=== PATIENT | male | born 1955 | race Caucasian/White ===

== ENCOUNTER 2018-05-10 10:54 | Emergency (ER) | payer OTHER ==
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
[2018-05-10 11:34] LABS: ABS Basophils 0.1 10^3/ul (0-0.2); ABS Eosinophils 0 10^3/ul (0-0.6); ABS Lymphocytes 0.9 10^3/ul (1.0-4.8); ABS Monocytes 0.6 10^3/ul (0-0.8); ABS Neutrophils 5.5 10^3/ul (1.5-7.7); ABS Nucleated RBC 0 10^3/ul; Eosinophil % 0.1 % (0-6); Hematocrit 34 % (42-52); Hemoglobin 11.6 g/dl (14.0-18.0); Lymphocyte % 13.1 % (25-47); Mean Corpuscular HGB Conc 34 g/dl (31-36); Mean Corpuscular Hemoglobin 31 pg (27-31); Mean Corpuscular Volume 91 fL (80-94); Mean Platelet Volume 7.9 um3 (7.4-10.4); Nucleated Red Blood Cells % 0.1; Platelet Count 134 10^3/ul (150-450); Red Blood Count 3.69 10^6/ul (4.00-5.40); Red Cell Distribution Width 15 % (10.5-15); White Blood Count 7.1 10^3/ul (3.5-10.8)
[2018-05-10] MEDS ORDERED: Iodixanol* (CONTRAST) 320 MG/ML 100 ML SDV IV ONE (11:37)
[2018-05-10 11:53] LABS: EGFR Non-African American 98.4 (>60)
[2018-05-10 11:54] LABS: INR 1.04 (0.77-1.02)
--- OUTSIDE RECORDS SUMMARY | 2018-05-10 11:54 | XMS REPORT ---
:1955 External Reference #:[id number] Author Organization [facility] Address [address] [place] [address] Phone [phone] Care Team Providers Name Role Phone HCP given Primary Care Physician Unavailable Payers Type Date Identification Numbers Payment Provider Subscriber Commercial Effective: Policy Number: [id number] Melina / LUIS FERNANDO Ever Wagner 2014 Healthcare PayID: [id number] [address] [place] [address] Problems Date Description Provider Status Onset: 06/18/2012 Essential hypertension Active Onset: 08/04/2014 Anticoagulant David Albarado D.O. Active Onset: 08/04/2014 Benign essential hypertension David Albarado D.O. Active Onset: 08/04/2014 Thromboembolic disorder David Albarado D.O. Active Onset: 04/15/2017 Long-term current use of anticoagulant David Albarado D.O. Active Onset: 04/15/2017 Disorder of lipid metabolism David Albarado D.O. Active Onset: 04/15/2017 Vitamin D deficiency David Albarado D.O. 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 Cigarette Use Denies Cigarette Use ETOH Use Occassional Alcohol Recreational Drug Use Denies Drug Use Smoking Patient has never smoked Daily Caffeine Consumes on average 3 cups of coffee per day Daily Caffeine Consumes on average 1 soda per day Enjoy Exercising Enjoys exercising some Sun Exposure Does not use sunscreen Seat Belt/Car Seat always uses seat belt Guns in Home Yes, Locked Up Smoke Alarms Yes smoke alarm Currently Active Patient is currently sexually active Allergies, Adverse Reactions, Alerts Date Description Reaction Status Severity Comments 05/11/2014 Augmentin Urticaria active Mild to Moderate 05/23/2012 NKDA inactive Medications Medication Date Status Form Strength Qnty SIG Indications Ordering Provider Viagra 10/15/ Active Tablets 50mg 6tabs take 1 tablet N52.9 [facility]2016 by mouth David, daily as D.O. needed for erectile dysfunction Vitamin D3 04/15/ Active Capsules 5000Unit 90caps 1 by mouth E55.9 [facility], Maximum 2016 every day or David, Strength 7 tablets D.O. once a week Xarelto 10/12/ Active Tablets 20mg 90tabs take one Z79.01 [facility], 2014 tablet by David, mouth once D.O. daily Lisinopril-H 10/18/ Active Tablets 10-12.5mg 90tabs take one I10 [place], ydrochloroth 2013 tablet by David, iachentee mouth in the D.O. morning for high blood pressure I10 Metoprolol 08/22/2012 Active Tablets ER 50mg 90tabs take one I10 [place], Succinate ER 24HR tablet by David, mouth once D.O. daily Viagra 04/15/2017 - Hx Tablets 50mg 6tabs take 1 tablet N52.9 [facility], 10/14/2017 by mouth David, daily as D.O. needed for erectile dysfunction Vitamin D 04/14/2017 - Hx Tablets 1000Uni 1 by mouth Unknown 04/22/2018 t every day Xarelto 10/12/2015 - Hx Tablets 15mg 42tabs 1 tab twice a Z79.0 [facility] , 11/02/2015 day with food 1 David, D.O. I82.91 Prednisone 05/11/2014 - Hx Tablets 20mg 10tabs 2 by mouth 995.27 [facility], 08/02/2014 every day David, D.O. Amoxicillin/C 05/03/2014 - Hx Tablets 875-125 14tabs 1 tab by 522.4 [place] lavulanate 05/11/2014 mg mouth twice a Woo, Potassium day x 7 M.DClaudia Tramadol HCL 05/03/2014 - Hx Tablets 50mg 20tabs 1 q6 hours 522.4 [place], 08/02/2014 Nancy Berkowitz Lovenox 05/11/2013 - Hx Solution 100mg/m 10needle Inject 0.9 ml Ronn, 05/22/2013 l bid, continue pat Berkowitz M.DClaudia instructed to d/c Coumadin 05/11/2013 - Hx Tablets 5mg 90tabs take one Z79.01 [place], 10/12/2015 tablet by Dilma Hernandez mouth at bedtime or as directed I82.91 Coumadin 05/11/2013 - Hx Tablets 1mg 200tabs take 1-4 [place], 10/12/2015 tablets by Jo Ann HernandezOClaudia mouth every evening as directed Metoprolol 06/18/2012 - Hx Tablets 25mg 30tabs 1 tab [place], Tartrate 06/18/2012 shortly Nancy Berkowitz before bed to start Lisinopril/Hydr 06/18/2012 - Hx Tablets 10-12.5m 90tabs Take One 401. [place], ochlorothiazide 10/18/2014 g Tablet By 9 Nancy Berkowitz Mouth Every Morning For High Blood Pressure 401.1 Compression 06/05/2012 - Hx Wear daily I82.4Y9 Ronn, Stocking 20 # 04/14/2017 Nancy Berkowitz Pressure Cephalexin 06/05/2012 - Hx Capsules 500mg 14cap 1 tablet bid 782.3 [place], 06/13/2012 s x 7 days Nancy Berkowitz Vitamin C 05/20/2012 - Hx Chewtabs [place], 10/14/2017 Nancy Berkowitz Fish Oil 05/20/2012 - Hx Capsules 90cap 1 po qd [place], 02/01/2015 s Nancy Berkowitz Coumadin 05/15/2012 - Hx Tablets 1mg 120ta qpm as [place], 02/27/2013 bs directed Nancy Berkowitz Coumadin 05/15/2012 - Hx Tablets 6mg 60tab take 1 qd as [place], 02/27/2013 chris Berkowitz M.D. Immunizations CPT Code Status Date Vaccine Lot # [id number] Given 04/22/2018 Prevnar 13 [id number] Given 10/15/2017 Zostavax [id number] Given 10/15/2017 Influenza Virus Vaccine, Quadrivalent, Split, Preservative Free [id number] Given 07/29/2013 Flu, Split Virus 3Yrs [id number] 69204 Given 08/22/2012 Flu, Split Virus 3Yrs [id number] Given 03/12/2012 Tetanus diptheria Immunization Vital Signs Date Vital Result Comment 04/22/2018 BP Systolic 114 mmHg BP Diastolic 78 mmHg Height 65.25 inches 5'5.25" Weight 205.00 lb BMI (Body Mass Index) 33.8 kg/m2 10/15/2017 BP Systolic 122 mmHg BP Diastolic 82 mmHg Weight 221.00 lb 04/15/2017 BP Systolic 120 mmHg BP Diastolic 70 mmHg Height 65 inches 5'5" Weight 213.00 lb BMI (Body Mass Index) 35.4 kg/m2 10/12/2016 BP Systolic 120 mmHg BP Diastolic 88 mmHg Height 65.75 inches 5'5.75" with boots Weight 228.00 lb with steel toe boots BMI (Body Mass Index) 37.1 kg/m2 10/12/2015 BP Systolic 116 mmHg BP Diastolic 76 mmHg Heart Rate 84 /min 02/02/2015 BP Systolic 110 mmHg BP Diastolic 84 mmHg Height 66 inches 5'6" shoes on Weight 207.00 lb shoes on BMI (Body Mass Index) 33.4 kg/m2 08/04/2014 BP Systolic 100 mmHg BP Diastolic 76 mmHg Height 65.5 inches 5'5.50" Weight 225.00 lb BMI (Body Mass Index) 36.9 kg/m2 05/11/2014 Body Temperature 98.6 F 05/03/2014 BP Systolic 137 mmHg BP Diastolic 69 mmHg Heart Rate 82 /min Weight 224.00 lb 02/01/2014 BP Systolic 133 mmHg BP Diastolic 70 mmHg Heart Rate 86 /min Weight 217.00 lb BMI (Body Mass Index) 36.1 kg/m2 11/04/2013 BP Systolic 115 mmHg BP Diastolic 70 mmHg Heart Rate 50 /min 60 Weight 207.00 lb boots on 07/29/2013 BP Systolic 129 mmHg BP Diastolic 80 mmHg BP Systolic Recheck 126 mmHg BP Diastolic Recheck 77 mmHg Heart Rate 68 /min 63 Height 65.5 inches 5'5.50" Weight 208.00 lb BMI (Body Mass Index) 34.1 kg/m2 05/22/2013 BP Systolic 118 mmHg BP Diastolic 78 mmHg Weight 203.00 lb 05/18/2013 BP Systolic 112 mmHg BP Diastolic 81 mmHg Heart Rate 73 /min Body Temperature 99.0 F Weight 200.00 lb 05/14/2013 BP Systolic 121 mmHg BP Diastolic 90 mmHg Heart Rate 85 /min O2 % BldC Oximetry 97 % 05/11/2013 BP Systolic 110 mmHg BP Diastolic 77 mmHg Heart Rate 82 /min Weight 204.00 lb 92 kilos 04/29/2013 BP Systolic 98 mmHg BP Diastolic 70 mmHg Weight 206.00 lb 01/28/2013 BP Systolic 119 mmHg BP Diastolic 81 mmHg Heart Rate 65 /min Height 65.50 inches 5'5.50" Weight 219.00 lb BMI (Body Mass Index) 35.9 kg/m2 11/24/2012 BP Systolic 121 mmHg lg cuff BP Diastolic 47 mmHg lg cuff Heart Rate 65 /min Weight 222.00 lb 08/28/2012 BP Systolic 112 mmHg BP Diastolic 83 mmHg Heart Rate 54 /min 08/22/2012 BP Systolic 132 mmHg BP Diastolic 102 mmHg BP Systolic Recheck 136 mmHg BP Diastolic Recheck 104 mmHg Heart Rate 74 /min Height 65.50 inches 5'5.50" Weight 215.00 lb BMI (Body Mass Index) 35.2 kg/m2 07/04/2012 BP Systolic 132 mmHg BP Diastolic 92 mmHg BP Systolic Recheck 122 mmHg BP Diastolic Recheck 91 mmHg Heart Rate 73 /min 71 Weight 216.00 lb 06/18/2012 BP Systolic 169 mmHg BP Diastolic 107 mmHg BP Systolic Recheck 163 mmHg BP Diastolic Recheck 95 mmHg Heart Rate 64 /min Weight 216.00 lb 06/05/2012 BP Systolic 155 mmHg BP Diastolic 96 mmHg BP Systolic Recheck 153 mmHg BP Diastolic Recheck 93 mmHg Heart Rate 76 /min 63 05/23/2012 BP Systolic 143 mmHg BP Diastolic 104 mmHg BP Systolic Recheck 146 mmHg Medium cuff both times BP Diastolic Recheck 105 mmHg Medium cuff both times Heart Rate 75 /min 69 Height 65 inches 5'5" Weight 217.00 lb BMI (Body Mass Index) 36.1 kg/m2 Last Menstrual Period 0 Results Test Date Test Result H/L Range Note Laboratory test finding 04/23/2017 TSH (Thyroid Stim 1.62 mcIU/mL 0.34- 5.60 Horm) Vitamin D Total 25(Oh) 21.2 ng/mL Low 30-50 Lipid Profile (Trig/Chol/HDL) 04/23/2017 Triglycerides 217 mg/dL 1 Cholesterol 153 mg/dL 2 HDL Cholesterol 28.4 mg/dL 3 LDL Cholesterol 81 mg/dL 4 CBC Auto Diff 04/23/2017 White Blood Count 5.3 10^3/uL 3.5-10.8 Red Blood Count 4.59 10^6/uL 4.0-5.4 Hemoglobin 14.2 g/dL 14.0-18.0 Hematocrit 42 % 42-52 Mean Corpuscular Volume 91 fL 80-94 Mean Corpuscular Hemoglobin 31 pg 27-31 Mean Corpuscular HGB Conc 34 g/dL 31-36 Red Cell Distribution Width 14 % 10.5-15 Platelet Count 145 10^3/uL Low 150-450 Mean Platelet Volume 9 um3 7.4-10.4 Abs Neutrophils 3.0 10^3/uL 1.5-7.7 Abs Lymphocytes 1.6 10^3/uL 1.0-4.8 Abs Monocytes 0.6 10^3/uL 0-0.8 Abs Eosinophils 0 10^3/uL 0-0.6 Abs Basophils 0.1 10^3/uL 0-0.2 Abs Nucleated RBC 0 10^3/uL Granulocyte % 56.9 % 38-83 Lymphocyte % 30.7 % 25-47 Monocyte % 11.0 % High 1-9 Eosinophil % 0.3 % 0-6 Basophil % 1.1 % 0-2 Nucleated Red Blood Cells % 0 Comp Metabolic Panel 04/23/2017 Sodium 136 mmol/L 133-145 Potassium 3.9 mmol/L 3.5-5.0 Chloride 104 mmol/L 101-111 Co2 Carbon Dioxide 24 mmol/L 22-32 Anion Gap 8 mmol/L 2-11 Glucose 110 mg/dL High 70-100 Blood Urea Nitrogen 22 mg/dL 6-24 Creatinine 1.10 mg/dL 0.67-1.17 BUN/Creatinine Ratio 20.0 8-20 Calcium 9.5 mg/dL 8.6-10.3 Total Protein 7.4 g/dL 6.4-8.9 Albumin 4.6 g/dL 3.2-5.2 Globulin 2.8 g/dL 2-4 Albumin/Globulin Ratio 1.6 1-3 Total Bilirubin 1.70 mg/dL High 0.2-1.0 Alkaline Phosphatase 41 U/L 34-104 Alt 19 U/L 7-52 Ast 17 U/L 13-39 Egfr Non- 67.4 >60 Egfr 86.7 >60 5 Basic Metabolic Panel 01/03/2017 Sodium 135 mmol/L 133-145 Potassium 3.8 mmol/L 3.5-5.0 Chloride 101 mmol/L 101-111 Co2 Carbon Dioxide 25 mmol/L 22-32 Anion Gap 9 mmol/L 2-11 Glucose 104 mg/dL High 70-100 Blood Urea Nitrogen 24 mg/dL 6-24 Creatinine 1.17 mg/dL 0.67-1.17 BUN/Creatinine Ratio 20.5 High 8-20 Calcium 10.0 mg/dL 8.6-10.3 Egfr Non- 63.0 >60 Egfr 81.0 >60 6 HIV 1/2 AB Evaluation 01/03/2017 HIV 1 2 Antibody Nonreactive Nonreactive 7 Laboratory test finding 01/03/2017 Hepatitis C Antibody Nonreactive Nonreactive Vitamin D Total 25(Oh) 11.7 ng/mL Low 30-50 Basic Metabolic Panel 10/12/2015 Sodium 135 mmol/L 133-145 Chloride 101 mmol/L 101-111 Co2 Carbon Dioxide 24 mmol/L 22-32 Glucose 105 mg/dL High 70-100 Blood Urea Nitrogen 14 mg/dL 6-24 Creatinine 1.15 mg/dL 0.67-1.17 BUN/Creatinine Ratio 12.2 8-20 Calcium 9.8 mg/dL 8.6-10.3 8 Egfr Non- 64.4 >60 Egfr 82.9 >60 9 Potassium 4.1 mmol/L 3.5-5.0 Anion Gap 10 mmol/L 2-11 Inr/Protime 10/12/2015 Inr 2.51 High 0.89-1.11 Inr/Protime 07/18/2015 Inr 2.38 High 0.78-1.07 Inr/Protime 04/12/2015 Inr 2.46 High 0.78-1.07 Inr/Protime 03/09/2015 Inr 1.96 High 0.78-1.07 Inr/Protime 02/02/2015 Inr 2.11 High 0.78-1.07 Inr/Protime 12/30/2014 Inr 2.33 High 0.78-1.07 Inr/Protime 12/06/2014 Inr 4.86 High 0.78-1.07 10 Inr/Protime 10/29/2014 Inr 2.86 High 0.85-1.06 Inr/Protime 09/27/2014 Inr 2.62 High 0.85-1.06 Inr/Protime 09/15/2014 Inr 2.02 High 0.85-1.06 Inr/Protime 08/04/2014 Inr 2.46 High 0.85-1.06 Inr/Protime 07/14/2014 Inr 1.79 High 0.85-1.06 Inr/Protime 06/11/2014 Inr 3.15 High 0.85-1.06 Inr/Protime 06/04/2014 Inr 1.90 High 0.85-1.06 Inr/Protime 05/03/2014 Inr 2.49 High 0.85-1.06 Inr/Protime 04/26/2014 Inr 3.33 High 0.85-1.06 Laboratory test finding 04/07/2014 Inr 1.47 High 0.85-1.06 Inr/Protime 03/26/2014 Inr 1.54 High 0.85-1.06 Inr/Protime 02/01/2014 Inr 2.24 High 0.85-1.06 Laboratory test finding 12/08/2013 Inr 1.98 High 0.85-1.06 Inr/Protime 11/17/2013 Inr 1.99 High 0.85-1.06 Laboratory test finding 11/17/2013 Insulin Level 33.1 mcIU/mL 2.6 - 24.9 11 Lipid Profile 11/17/2013 Triglycerides 415 mg/dL High 40-200 (Trig/Chol/HDL) Cholesterol 226 mg/dL High Less than 200 HDL Cholesterol 35 mg/dL Low 40-60 12 Cholesterol/HDL Ratio 6.5 Average High 1-4.44 LDL Cholesterol (SEE NOTE) Less Than 100 13 Inr/Protime 10/26/2013 Inr 2.80 High 0.85-1.06 14 Inr/Protime 10/20/2013 Inr 2.39 High 0.85-1.06 15 Inr/Protime 10/16/2013 Inr 4.99 High 0.85-1.06 16 Inr/Protime 10/12/2013 Inr 4.79 High 0.85-1.06 17 Inr/Protime 09/30/2013 Inr 2.33 High 0.85-1.06 18 Protime 09/26/2013 Protime 15.9 seconds High 12.1-14.9 Inr 1.3 High 0.9-1.1 19 CBC 09/26/2013 White Blood Count 7.3 K/uL 3.4-10.5 Red Blood Count 4.00 M/uL Low 4.20-5.80 Hemoglobin 12.4 gm/dL Low 12.8-17.0 Hematocrit 35.9 % Low 38.0-48.0 Mean Cell Volume 89.8 fl 80.0-96.0 Mean Corpuscular HGB 31.0 pg 27.0-33.0 Mean Corpuscular HGB Conc 34.5 g/dL 31.7-36.0 Platelet Count 218 K/uL 150-400 Red Cell Distri Width %CV 13.9 % 11.6-15.8 Mean Platelet Volume 9.5 fL 6.6-10.6 Comprehensive Metabolic Panel 09/24/2013 Glucose 94 mg/dL 76-115 20 BUN 13 mg/dL 5-23 20 Creatinine 0.9 mg/dL 0.5-1.4 20 Glom Filtration Rate, Estimate >60 mL/min >60 20 If >60 mL/min >60 20, 21 BUN/Creat 14.4 ratio 20 Sodium 136 mmol/L 136-145 20 Potassium 3.7 mmol/L 3.5-5.1 20 Chloride 104 mmol/L 98-107 20 Carbon Dioxide 25 mEq/L 18-29 20 Anion Gap 11 mEq/L 8-16 20 Calcium 8.6 mg/dL 8.5-10.1 20 Total Protein 7.0 g/dL 6.3-8.0 20 Albumin 3.2 g/dL Low 3.5-5.0 20 Globulin 3.8 g/dL 1.9-4.3 20 Alb/Glob 0.8 ratio 20 Bilirubin,Total 2.4 mg/dL High 0.2-1.2 20 Sgot/Ast 26 U/L 16-40 20 SGPT/Alt 33 U/L 30-65 20 Alkaline Phosphatase 85 U/L 50-136 20 Laboratory test finding 09/24/2013 Bilirubin,Direct 0.4 mg/dL 0.1-0.4 20 CBS W/Automated Diff 09/24/2013 White Blood Count 8.2 K/uL 3.4-10.5 20 Red Blood Count 4.28 M/uL 4.20-5.80 20 Hemoglobin 13.3 gm/dL 12.8-17.0 20 Hematocrit 37.9 % Low 38.0-48.0 20 Mean Cell Volume 88.6 fl 80.0-96.0 20 Mean Corpuscular HGB 31.1 pg 27.0-33.0 20 Mean Corpuscular HGB Conc 35.1 g/dL 31.7-36.0 20 Platelet Count 217 K/uL 150-400 20 Red Cell Distri Width SD 43.7 fl 36-51 20 Red Cell Distri Width %CV 13.8 % 11.6-15.8 20 Mean Platelet Volume 9.6 fL 6.6-10.6 20 Neut# 6.43 K/uL 1.8-7.0 20 Lymph # 0.93 K/uL Low 1.2-4.0 20 [place] # 0.76 K/uL High 0.0-0.6 20 Eos # 0.03 K/uL 0.0-0.5 20 Baso # 0.02 K/uL Low 0.1-0.2 20 Protime 09/24/2013 Protime 14.2 seconds 12.1-14.9 20 Inr 1.1 0.9-1.1 20, 22 Differential-WBC Confirm 09/24/2013 Total Cells Counted 100 #CELLS 20 Myelocyte% 2 % High -0 20 Band% 1 % 0-8 20 Neutrophils% 76 % High 33-73 20 Lymph% 12 % Low 17-56 20 Atypical Lymph% 4 % 0-7 20 Monocyte% 4 % 0-10 20 Basophil% 1 % 0-2 20 Platelet Estimate NORMAL 20 RBC Morphology NORMAL 20 Comprehensive Metabolic Panel 09/21/2013 Glucose 135 mg/dL High 76-115 BUN 11 mg/dL 5-23 Creatinine 1.0 mg/dL 0.5-1.4 Glom Filtration Rate, Estimate >60 mL/min >60 If >60 mL/min >60 23 BUN/Creat 11.0 ratio Sodium 138 mmol/L 136-145 Potassium 3.8 mmol/L 3.5-5.1 Chloride 104 mmol/L 98-107 Carbon Dioxide 24 mEq/L 18-29 Anion Gap 14 mEq/L 8-16 Calcium 8.5 mg/dL 8.5-10.1 Total Protein 6.2 g/dL Low 6.3-8.0 Albumin 3.1 g/dL Low 3.5-5.0 Globulin 3.1 g/dL 1.9-4.3 Alb/Glob 1.0 ratio Bilirubin,Total 4.2 mg/dL High 0.2-1.2 Sgot/Ast 19 U/L 16-40 SGPT/Alt 33 U/L 30-65 Alkaline Phosphatase 65 U/L 50-136 Laboratory test finding 09/21/2013 Bilirubin,Direct 0.3 mg/dL 0.1-0.4 Protime 09/21/2013 Protime 16.7 seconds High 12.1-14.9 Inr 1.4 High 0.9-1.1 24 CBS W/Automated Diff 09/21/2013 White Blood Count 21.3 K/uL High 3.4-10.5 Red Blood Count 4.10 M/uL Low 4.20-5.80 Hemoglobin 13.0 gm/dL 12.8-17.0 Hematocrit 36.8 % Low 38.0-48.0 Mean Cell Volume 89.8 fl 80.0-96.0 Mean Corpuscular HGB 31.7 pg 27.0-33.0 Mean Corpuscular HGB Conc 35.3 g/dL 31.7-36.0 Platelet Count 183 K/uL 150-400 Red Cell Distri Width SD 48.2 fl 36-51 Red Cell Distri Width %CV 14.9 % 11.6-15.8 Mean Platelet Volume 10.6 fL 6.6-10.6 Neut# 18.87 K/uL High 1.8-7.0 Lymph # 0.89 K/uL Low 1.2-4.0 [place] # 1.57 K/uL High 0.0-0.6 Eos # 0.00 K/uL 0.0-0.5 Baso # 0.01 K/uL Low 0.1-0.2 Differential-WBC Confirm 09/21/2013 Total Cells Counted 100 #CELLS Band% 9 % High 0-8 Neutrophils% 81 % High 33-73 Lymph% 5 % Low 17-56 Monocyte% 5 % 0-10 Platelet Estimate NORMAL RBC Morphology NORMAL Protime 09/20/2013 Protime 27.7 seconds High 12.1-14.9 Inr 2.6 High 0.9-1.1 25 CBC W/Automated Diff 09/20/2013 White Blood Count 18.2 K/uL High 3.4-10.5 Red Blood Count 5.27 M/uL 4.20-5.80 Hemoglobin 16.4 gm/dL 12.8-17.0 Hematocrit 45.7 % 38.0-48.0 Mean Cell Volume 86.7 fl 80.0-96.0 Mean Corpuscular HGB 31.1 pg 27.0-33.0 Mean Corpuscular HGB Conc 35.9 g/dL 31.7-36.0 Platelet Count 214 K/uL 150-400 Red Cell Distri Width SD 47.0 fl 36-51 Red Cell Distri Width %CV 14.8 % 11.6-15.8 Mean Platelet Volume 10.4 fL 6.6-10.6 Neut% 88.2 % High 33.0-73.0 Lymph % 5.9 % Low 17.0-56.0 [place] % 5.8 % 0.0-10.0 Eo% 0.0 % 0.0-5.0 Bas% 0.1 % 0.1-1.0 Neut# 16.10 K/uL High 1.8-7.0 Lymph # 1.07 K/uL Low 1.2-4.0 [place] # 1.05 K/uL High 0.0-0.6 Eos # 0.00 K/uL 0.0-0.5 Baso # 0.01 K/uL Low 0.1-0.2 Laboratory test 09/20/2013 Lipase 163 U/L 28-380 finding Laboratory test 09/20/2013 Small Intestine Resxn See Note 26 finding Other Protime 09/20/2013 Protime 19.0 seconds High 12.1-14.9 Inr 1.6 High 0.9-1.1 27 Anaerobic Culture W/ GR Stain 09/20/2013 Gram Stain; Anaerobic See Note 28 Specimen Anaerobic Culture See Note 29 Routine Culture W/ Gram Stain 09/20/2013 Gram Stain See Note 30 Aerobic Culture See Note 31 Urine Screen 09/20/2013 Urine Color YELLOW Yellow Urine Clarity CLEAR Clear Urine Glucose - Dipstick NEGATIVE mg/dL Negative Urine Bilirubin - Dipstick NEGATIVE Negative Urine Ketone NEGATIVE mg/dL Negative Urine Specific [place] 1.015 1.010-1.030 Urine Blood NEGATIVE Negative Urine PH 5.0 Low 6.5-7.5 Urine Protein - Dipstick NEGATIVE mg/dL Negative Urine Urobilinogen - Dipstick 0.2 E.U./dL 0.2-1.0 Urine Nitrite - Dipstick NEGATIVE Negative Urine Leuk Esterase NEGATIVE Negative Comprehensive Metabolic Panel 09/20/2013 Glucose 149 mg/dL High 76-115 BUN 19 mg/dL 5-23 Creatinine 1.2 mg/dL 0.5-1.4 Glom Filtration Rate, Estimate >60 mL/min >60 If >60 mL/min >60 32 BUN/Creat 15.8 ratio Sodium 137 mmol/L 136-145 Potassium 4.0 mmol/L 3.5-5.1 Chloride 107 mmol/L 98-107 Carbon Dioxide 21 mEq/L 18-29 Anion Gap 13 mEq/L 8-16 Calcium 9.1 mg/dL 8.5-10.1 Total Protein 7.9 g/dL 6.3-8.0 Albumin 4.3 g/dL 3.5-5.0 Globulin 3.6 g/dL 1.9-4.3 Alb/Glob 1.2 ratio Bilirubin,Total 2.6 mg/dL High 0.2-1.2 Sgot/Ast 25 U/L 16-40 SGPT/Alt 46 U/L 30-65 Alkaline Phosphatase 88 U/L 50-136 Fresh Frozen Plasma,Single 09/20/2013 Fresh Frozen Plasma,Single See Note 33 8HR 8HR Fresh Frozen Plasma 8-24 Hours See Note 34 Laboratory test finding 09/20/2013 Abo/RH Type B POS 35 Crossmatch See Note 36 Type And Screen See Note 37 Type And Screen 09/20/2013 Antibody Screen NEGATIVE Comment: BLOOD IS READY Inr/Protime 09/14/2013 Inr 2.32 High 0.85-1.06 38 Inr/Protime 09/08/2013 Inr 1.67 High 0.85-1.06 39 Inr/Protime 08/21/2013 Inr 2.80 High 0.87-0.97 Inr/Protime 08/13/2013 Inr 1.61 High 0.87-0.97 Lipid Profile (Trig/Chol/HDL) 08/13/2013 Triglycerides 459 mg/dL High 40- 200 Cholesterol 183 mg/dL Less than 200 HDL Cholesterol 25 mg/dL Low 40-60 40 Cholesterol/HDL Ratio 7.3 Average High 1-4.44 LDL Cholesterol (SEE NOTE) Less Than 100 41 CBC With Manual Diff 08/13/2013 White Blood Count 5.6 10^3/uL 4.8-10.8 Red Blood Count 4.64 10^6/uL 4.0-5.4 Hemoglobin 13.9 g/dL Low 14.0-18.0 Hematocrit 41 % Low 42-52 Mean Corpuscular Volume 89 fL 80-94 Mean Corpuscular Hemoglobin 30 pg 27-31 Mean Corpuscular HGB Conc 34 g/dL 31-36 Red Cell Distribution Width 16 % High 10.5-15 Platelet Count 171 10^3/uL 150-450 Mean Platelet Volume 9 um3 7.4-10.4 Abs Neutrophils 3.6 10^3/uL 1.5-7.7 Abs Lymphocytes 1.4 10^3/uL 1.0-4.8 Abs Monocytes 0.5 10^3/uL 0-0.8 Abs Eosinophils 0 10^3/uL 0-0.6 Abs Basophils 0 10^3/uL 0-0.2 Abs Nucleated RBC 0 10^3/uL Neutrophil % 68 % 38-83 Lymphocytes % 29 % 25-47 Monocytes % 2 % 0-13 Reactive Lymph % 1 % 0-6 RBC Morphology Normal Normal Laboratory test finding 08/13/2013 Vitamin B12 323 pg/mL 180-914 42 Inr/Protime 07/29/2013 Inr 2.71 High 0.87-0.97 Inr/Protime 07/23/2013 Inr 4.11 High 0.87-0.97 Inr/Protime 07/10/2013 Inr 2.12 High 0.87-0.97 Inr/Protime 07/03/2013 Inr 1.25 High 0.87-0.97 Inr/Protime 06/30/2013 Inr 1.17 High 0.87-0.97 Inr/Protime 06/22/2013 Inr 1.72 High 0.87-0.97 Inr/Protime 06/08/2013 Inr 2.48 High 0.87-0.97 Inr/Protime 06/03/2013 Inr 4.83 High 0.87-0.97 Inr/Protime 05/28/2013 Inr 3.14 High 0.87-0.97 Inr/Protime 05/22/2013 Inr 3.10 High 0.87-0.97 CBC Auto Diff 05/22/2013 White Blood Count 6.0 10^3/uL 4.8-10.8 Red Blood Count 4.21 10^6/uL 4.0-5.4 Hemoglobin 12.8 g/dL Low 14.0-18.0 Hematocrit 39 % Low 42-52 Mean Corpuscular Volume 91 fL 80-94 Mean Corpuscular Hemoglobin 31 pg 27-31 Mean Corpuscular HGB Conc 33 g/dL 31-36 Red Cell Distribution Width 15 % 10.5-15 Platelet Count 239 10^3/uL 150-450 Mean Platelet Volume 9 um3 7.4-10.4 Abs Neutrophils 3.7 10^3/uL 1.5-7.7 Abs Lymphocytes 1.6 10^3/uL 1.0-4.8 Abs Monocytes 0.5 10^3/uL 0-0.8 Abs Eosinophils 0.1 10^3/uL 0-0.6 Abs Basophils 0 10^3/uL 0-0.2 Abs Nucleated RBC 0.01 10^3/uL Granulocyte % 62.0 % 38-83 Lymphocyte % 27.1 % 25-47 Monocyte % 8.6 % 1-9 Eosinophil % 1.7 % 0-6 Basophil % 0.6 % 0-2 Nucleated Red Blood Cells % 0.1 Laboratory test finding 05/18/2013 Hemoglobin 11.8 Inr/Protime 05/18/2013 Inr 2.70 High 0.87-0.97 Inr/Protime 05/14/2013 Inr 1.16 High 0.87-0.97 CBC Auto Diff 05/11/2013 White Blood Count 7.0 10^3/uL 4.8-10.8 Red Blood Count 4.08 10^6/uL 4.0-5.4 Hemoglobin 12.3 g/dL Low 14.0-18.0 Hematocrit 37 % Low 42-52 Mean Corpuscular Volume 92 fL 80-94 Mean Corpuscular Hemoglobin 30 pg 27-31 Mean Corpuscular HGB Conc 33 g/dL 31-36 Red Cell Distribution Width 15 % 10.5-15 Platelet Count 229 10^3/uL 150-450 Mean Platelet Volume 8 um3 7.4-10.4 Abs Neutrophils 4.7 10^3/uL 1.5-7.7 Abs Lymphocytes 1.6 10^3/uL 1.0-4.8 Abs Monocytes 0.6 10^3/uL 0-0.8 Abs Eosinophils 0 10^3/uL 0-0.6 Abs Basophils 0 10^3/uL 0-0.2 Abs Nucleated RBC 0 10^3/uL Granulocyte % 67.5 % 38-83 Lymphocyte % 23.2 % Low 25-47 Monocyte % 8.5 % 1-9 Eosinophil % 0.4 % 0-6 Basophil % 0.4 % 0-2 Nucleated Red Blood Cells % 0 Comp Metabolic Panel 05/11/2013 Sodium 135 mmol/L 133-145 Potassium 4.2 mmol/L 3.5-5.0 Chloride 102 mmol/L 101-111 Co2 Carbon Dioxide 27.0 mmol/L 22-32 Anion Gap 6.0 mmol/L 2-11 Glucose 109 mg/dL High 70-100 Blood Urea Nitrogen 12 mg/dL 6-24 Creatinine 0.90 mg/dL 0.50-1.40 BUN/Creatinine Ratio 13.3 8-20 Calcium 9.0 mg/dL 8.1-9.9 Total Protein 6.3 g/dL 6.2-8.1 Albumin 3.4 g/dL 3.2-5.2 Globulin 2.9 g/dL 2-4 Albumin/Globulin Ratio 1.2 1-3 Total Bilirubin 1.0 mg/dL 0.4-1.5 Alkaline Phosphatase 137 U/L High 30-110 Alt 60 U/L High 14-54 Ast 37 U/L 12-42 Egfr Non- 86.1 >60 Egfr 110.7 >60 43 CBC 05/04/2013 White Blood Count 8.6 K/uL 3.4-10.5 Red Blood Count 4.03 M/uL Low 4.20-5.80 Hemoglobin 12.5 gm/dL Low 12.8-17.0 Hematocrit 37.9 % Low 38.0-48.0 Mean Cell Volume 94.0 fl 80.0-96.0 Mean Corpuscular HGB 31.0 pg 27.0-33.0 Mean Corpuscular HGB Conc 33.0 g/dL 31.7-36.0 Platelet Count 295 K/uL 150-400 Red Cell Distri Width %CV 14.0 % 11.6-15.8 Mean Platelet Volume 10.0 fL 6.6-10.6 Comprehensive Metabolic Panel 05/04/2013 Glucose 87 mg/dL 76-115 BUN 8 mg/dL 5-23 Creatinine 1.0 mg/dL 0.5-1.4 Glom Filtration Rate, Estimate >60 mL/min >60 If >60 mL/min >60 44 BUN/Creat 8.0 ratio Sodium 143 mmol/L 136-145 Potassium 3.7 mmol/L 3.5-5.1 Chloride 108 mmol/L High 98-107 Carbon Dioxide 24 mEq/L 18-29 Anion Gap 15 mEq/L 8-16 Calcium 8.6 mg/dL 8.5-10.1 Total Protein 5.4 g/dL Low 6.3-8.0 Albumin 2.8 g/dL Low 3.5-5.0 Globulin 2.6 g/dL 1.9-4.3 Alb/Glob 1.1 ratio Bilirubin,Total 0.7 mg/dL 0.2-1.2 Sgot/Ast 84 U/L High 16-40 SGPT/Alt 125 U/L High 30-65 Alkaline Phosphatase 230 U/L High 50-136 Laboratory test finding 05/04/2013 Colonic Mucosa/Polyp See Note 45 Biopsy CBC 05/02/2013 White Blood Count 13.9 K/uL High 3.4-10.5 Red Blood Count 3.67 M/uL Low 4.20-5.80 Hemoglobin 11.4 gm/dL Low 12.8-17.0 Hematocrit 34.2 % Low 38.0-48.0 Mean Cell Volume 93.2 fl 80.0-96.0 Mean Corpuscular HGB 31.1 pg 27.0-33.0 Mean Corpuscular HGB Conc 33.3 g/dL 31.7-36.0 Platelet Count 305 K/uL 150-400 Red Cell Distri Width %CV 13.9 % 11.6-15.8 Mean Platelet Volume 9.8 fL 6.6-10.6 Comprehensive Metabolic Panel 05/02/2013 Glucose 97 mg/dL 76-115 BUN 12 mg/dL 5-23 Creatinine 1.1 mg/dL 0.5-1.4 Glom Filtration Rate, Estimate >60 mL/min >60 If >60 mL/min >60 46 BUN/Creat 10.9 ratio Sodium 143 mmol/L 136-145 Potassium 4.0 mmol/L 3.5-5.1 Chloride 108 mmol/L High 98-107 Carbon Dioxide 25 mEq/L 18-29 Anion Gap 14 mEq/L 8-16 Calcium 7.8 mg/dL Low 8.5-10.1 Total Protein 5.5 g/dL Low 6.3-8.0 Albumin 2.4 g/dL Low 3.5-5.0 Globulin 3.1 g/dL 1.9-4.3 Alb/Glob 0.8 ratio Bilirubin,Total 0.4 mg/dL 0.2-1.2 Sgot/Ast 64 U/L High 16-40 SGPT/Alt 82 U/L High 30-65 Alkaline Phosphatase 192 U/L High 50-136 Laboratory test finding 05/01/2013 Thyroid Stim Hormone 0.87 uIU/mL 0.49- 4.67 Ferritin 1259.3 ng/mL High 5-244 Comprehensive Metabolic Panel 05/01/2013 Glucose 95 mg/dL 76-115 BUN 7 mg/dL 5-23 Creatinine 1.1 mg/dL 0.5-1.4 Glom Filtration Rate, Estimate >60 mL/min >60 If >60 mL/min >60 47 BUN/Creat 6.3 ratio Sodium 142 mmol/L 136-145 Potassium 3.9 mmol/L 3.5-5.1 Chloride 106 mmol/L 98-107 Carbon Dioxide 26 mEq/L 18-29 Anion Gap 14 mEq/L 8-16 Calcium 7.9 mg/dL Low 8.5-10.1 Total Protein 5.7 g/dL Low 6.3-8.0 Albumin 2.3 g/dL Low 3.5-5.0 Globulin 3.4 g/dL 1.9-4.3 Alb/Glob 0.7 ratio Bilirubin,Total 0.5 mg/dL 0.2-1.2 Sgot/Ast 36 U/L 16-40 SGPT/Alt 67 U/L High 30-65 Alkaline Phosphatase 153 U/L High 50-136 Vitamin B12 And Folate 05/01/2013 Vitamin B12 603 pg/mL 200-900 Folic Acid 8.3 ng/mL 6.0-15.4 CBC 05/01/2013 White Blood Count 14.3 K/uL High 3.4-10.5 Red Blood Count 3.73 M/uL Low 4.20-5.80 Hemoglobin 11.5 gm/dL Low 12.8-17.0 Hematocrit 34.9 % Low 38.0-48.0 Mean Cell Volume 93.6 fl 80.0-96.0 Mean Corpuscular HGB 30.8 pg 27.0-33.0 Mean Corpuscular HGB Conc 33.0 g/dL 31.7-36.0 Platelet Count 327 K/uL 150-400 Red Cell Distri Width %CV 13.8 % 11.6-15.8 Mean Platelet Volume 9.4 fL 6.6-10.6 Laboratory test finding 05/01/2013 Reticulocyte Count,Automated 1.4 % 0.8 -2.1 Stool Culture 04/30/2013 Stool Culture See Note 48 Shiga Toxin 1 See Note 49 Shiga Toxin 2 See Note 50 Laboratory test finding 04/30/2013 C. Difficile Toxin A/B See Note 51 Ova + Parasite Antigen Screen 04/30/2013 Cryptosporidium Specific Ag See Note 52 Giardia Specific Antigen See Note 53 Comprehensive Metabolic Panel 04/30/2013 Glucose 104 mg/dL 76-115 BUN 9 mg/dL 5-23 Creatinine 1.1 mg/dL 0.5-1.4 Glom Filtration Rate, Estimate >60 mL/min >60 If >60 mL/min >60 54 BUN/Creat 8.1 ratio Sodium 140 mmol/L 136-145 Potassium 3.5 mmol/L 3.5-5.1 Chloride 104 mmol/L 98-107 Carbon Dioxide 27 mEq/L 18-29 Anion Gap 13 mEq/L 8-16 Calcium 8.2 mg/dL Low 8.5-10.1 Total Protein 5.5 g/dL Low 6.3-8.0 Albumin 2.3 g/dL Low 3.5-5.0 Globulin 3.2 g/dL 1.9-4.3 Alb/Glob 0.7 ratio Bilirubin,Total 0.7 mg/dL 0.2-1.2 Sgot/Ast 42 U/L High 16-40 SGPT/Alt 68 U/L High 30-65 Alkaline Phosphatase 149 U/L High 50-136 LDL Cholesterol Profile 04/30/2013 Cholesterol 118 mg/dL Low 120-200 Triglycerides 205 mg/dL 16-231 HDL Cholesterol 13 mg/dL Low 29-83 LDL-Cholesterol 64 mg/dL 62-185 CBC 04/30/2013 White Blood Count 13.3 K/uL High 3.4-10.5 Red Blood Count 3.77 M/uL Low 4.20-5.80 Hemoglobin 11.8 gm/dL Low 12.8-17.0 Hematocrit 34.6 % Low 38.0-48.0 Mean Cell Volume 91.8 fl 80.0-96.0 Mean Corpuscular HGB 31.3 pg 27.0-33.0 Mean Corpuscular HGB Conc 34.1 g/dL 31.7-36.0 Platelet Count 342 K/uL 150-400 Red Cell Distri Width %CV 13.6 % 11.6-15.8 Mean Platelet Volume 9.6 fL 6.6-10.6 Differential-WBC 04/30/2013 Total Cells Counted 100 #CELLS Myelocyte% 2 % High -0 55 Band% 1 % 0-8 Neutrophils% 75 % High 33-73 Lymph% 12 % Low 17-56 Monocyte% 10 % 0-10 Platelet Estimate NORMAL Polychromasia 0-1+ Anisocytosis 0-1+ Protime 04/30/2013 Protime 15.1 seconds High 12.1-14.9 Inr 1.2 High 0.9-1.1 56 Laboratory test finding 04/29/2013 Hemoglobin 12.7 gm/dL Low 12.8-17.0 Liver Function Tests 04/29/2013 Total Protein 6.6 g/dL 6.3-8.0 Albumin 2.8 g/dL Low 3.5-5.0 Globulin 3.8 g/dL 1.9-4.3 Alb/Glob 0.7 ratio Bilirubin,Total 0.9 mg/dL 0.2-1.2 Bilirubin,Direct 0.3 mg/dL 0.1-0.4 Bilirubin,Indirect 0.6 mg/dL 0.0-0.9 Sgot/Ast 54 U/L High 16-40 SGPT/Alt 86 U/L High 30-65 Alkaline Phosphatase 183 U/L High 50-136 Basic Metabolic Panel 04/29/2013 Glucose 119 mg/dL High 76-115 BUN 12 mg/dL 5-23 Creatinine 1.1 mg/dL 0.5-1.4 Glom Filtration Rate, Estimate >60 mL/min >60 If >60 mL/min >60 57 BUN/Creat 10.9 ratio Sodium 138 mmol/L 136-145 Potassium 3.8 mmol/L 3.5-5.1 Chloride 101 mmol/L 98-107 Carbon Dioxide 26 mEq/L 18-29 Anion Gap 15 mEq/L 8-16 Calcium 8.7 mg/dL 8.5-10.1 CBC W/Automated Diff 04/29/2013 White Blood Count 14.1 K/uL High 3.4-10.5 Red Blood Count 4.45 M/uL 4.20-5.80 Hemoglobin 14.0 gm/dL 12.8-17.0 Hematocrit 40.3 % 38.0-48.0 Mean Cell Volume 90.6 fl 80.0-96.0 Mean Corpuscular HGB 31.5 pg 27.0-33.0 Mean Corpuscular HGB Conc 34.7 g/dL 31.7-36.0 Platelet Count 432 K/uL High 150-400 Red Cell Distri Width SD 43.9 fl 36-51 Red Cell Distri Width %CV 13.5 % 11.6-15.8 Mean Platelet Volume 9.6 fL 6.6-10.6 Differential-WBC Confirm 04/29/2013 Total Cells Counted 100 #CELLS Metamyelocyte% 2 % High -0 Band% 6 % 0-8 Neutrophils% 79 % High 33-73 Lymph% 10 % Low 17-56 Monocyte% 2 % 0-10 Basophil% 1 % 0-2 Platelet Estimate SLIGHT INCREASE RBC Morphology NORMAL Type And Screen 04/29/2013 Patient Blood Type B POS Antibody Screen Negative Negative Laboratory test finding 04/29/2013 Stool Occult Blood-Single POSITIVE High Negative Spec Laboratory test finding 04/29/2013 Hemoglobin 14.2 Liver Function Tests 04/23/2013 Total Protein 7.1 g/dL 6.3-8.0 Albumin 2.9 g/dL Low 3.5-5.0 Globulin 4.2 g/dL 1.9-4.3 Alb/Glob 0.7 ratio Bilirubin,Total 1.3 mg/dL High 0.2-1.2 Bilirubin,Direct 0.4 mg/dL 0.1-0.4 Bilirubin,Indirect 0.9 mg/dL 0.0-0.9 Sgot/Ast 24 U/L 16-40 SGPT/Alt 45 U/L 30-65 Alkaline Phosphatase 94 U/L 50-136 Basic Metabolic Panel 04/23/2013 Glucose 135 mg/dL High 76-115 BUN 17 mg/dL 5-23 Creatinine 1.1 mg/dL 0.5-1.4 Glom Filtration Rate, Estimate >60 mL/min >60 If >60 mL/min >60 58 BUN/Creat 15.4 ratio Sodium 135 mmol/L Low 136-145 Potassium 3.8 mmol/L 3.5-5.1 Chloride 96 mmol/L Low 98-107 Carbon Dioxide 28 mEq/L 18-29 Anion Gap 15 mEq/L 8-16 Calcium 9.1 mg/dL 8.5-10.1 Laboratory test finding 04/23/2013 Lipase 149 U/L 28-380 CK 65 U/L 26-190 CBC W/Automated Diff 04/23/2013 White Blood Count 17.2 K/uL High 3.4-10.5 59 Red Blood Count 4.65 M/uL 4.20-5.80 Hemoglobin 14.9 gm/dL 12.8-17.0 Hematocrit 42.1 % 38.0-48.0 Mean Cell Volume 90.5 fl 80.0-96.0 Mean Corpuscular HGB 32.0 pg 27.0-33.0 Mean Corpuscular HGB Conc 35.4 g/dL 31.7-36.0 Platelet Count 364 K/uL 150-400 60 Red Cell Distri Width SD 43.7 fl 36-51 Red Cell Distri Width %CV 13.4 % 11.6-15.8 Mean Platelet Volume 9.7 fL 6.6-10.6 Differential WBC Confirm 04/23/2013 Total Cells Counted 100 #CELLS Band% 1 % 0-8 Neutrophils% 84 % High 33-73 Lymph% 6 % Low 17-56 Atypical Lymph% 2 % 0-7 Monocyte% 7 % 0-10 Platelet Estimate NORMAL RBC Morphology NORMAL Toxic Granulation 0-1+ Laboratory test finding 04/21/2013 Gallbladder See Note 61 Liver Function Tests 04/20/2013 Total Protein 7.7 g/dL 6.3-8.0 Albumin 3.7 g/dL 3.5-5.0 Globulin 4.0 g/dL 1.9-4.3 Alb/Glob 0.9 ratio Bilirubin,Total 1.5 mg/dL High 0.2-1.2 Bilirubin,Direct 0.3 mg/dL 0.1-0.4 Bilirubin,Indirect 1.2 mg/dL High 0.0-0.9 Sgot/Ast 23 U/L 16-40 SGPT/Alt 51 U/L 30-65 Alkaline Phosphatase 91 U/L 50-136 Electrolyte Panel 04/20/2013 Sodium 136 mmol/L 136-145 Potassium 3.7 mmol/L 3.5-5.1 Chloride 101 mmol/L 98-107 Carbon Dioxide 25 mEq/L 18-29 Anion Gap 14 mEq/L 8-16 CBC W/Automated Diff 04/20/2013 White Blood Count 9.1 K/uL 3.4-10.5 Red Blood Count 4.38 M/uL 4.20-5.80 Hemoglobin 14.1 gm/dL 12.8-17.0 Hematocrit 39.4 % 38.0-48.0 Mean Cell Volume 90.0 fl 80.0-96.0 Mean Corpuscular HGB 32.2 pg 27.0-33.0 Mean Corpuscular HGB Conc 35.8 g/dL 31.7-36.0 Platelet Count 241 K/uL 150-400 Red Cell Distri Width SD 42.6 fl 36-51 Red Cell Distri Width %CV 13.2 % 11.6-15.8 Mean Platelet Volume 9.9 fL 6.6-10.6 Neut% 78.4 % High 33.0-73.0 Lymph % 11.3 % Low 17.0-56.0 [place] % 10.0 % 0.0-10.0 Eo% 0.1 % 0.0-5.0 Bas% 0.2 % 0.1-1.0 Neut# 7.14 K/uL High 1.8-7.0 Lymph # 1.03 K/uL Low 1.2-4.0 [place] # 0.91 K/uL High 0.0-0.6 Eos # 0.01 K/uL 0.0-0.5 Baso # 0.02 K/uL Low 0.1-0.2 CBC W/Automated Diff 04/18/2013 White Blood Count 10.4 K/uL 3.4-10.5 Red Blood Count 4.36 M/uL 4.20-5.80 Hemoglobin 14.1 gm/dL 12.8-17.0 Hematocrit 38.8 % 38.0-48.0 Mean Cell Volume 89.0 fl 80.0-96.0 Mean Corpuscular HGB 32.3 pg 27.0-33.0 Mean Corpuscular HGB Conc 36.3 g/dL High 31.7-36.0 Platelet Count 213 K/uL 150-400 Red Cell Distri Width SD 42.1 fl 36-51 Red Cell Distri Width %CV 13.1 % 11.6-15.8 Mean Platelet Volume 10.0 fL 6.6-10.6 Neut% 72.9 % 33.0-73.0 Lymph % 12.7 % Low 17.0-56.0 [place] % 14.0 % High 0.0-10.0 Eo% 0.2 % 0.0-5.0 Bas% 0.2 % 0.1-1.0 Neut# 7.59 K/uL High 1.8-7.0 Lymph # 1.32 K/uL 1.2-4.0 [place] # 1.46 K/uL High 0.0-0.6 Eos # 0.02 K/uL 0.0-0.5 Baso # 0.02 K/uL Low 0.1-0.2 Laboratory test finding 04/18/2013 Lipase 173 U/L 28-380 62 Comprehensive Metabolic Panel 04/18/2013 Glucose 118 mg/dL High 76-115 BUN 17 mg/dL 5-23 Creatinine 1.1 mg/dL 0.5-1.4 Glom Filtration Rate, Estimate >60 mL/min >60 If >60 mL/min >60 63 BUN/Creat 15.4 ratio Sodium 136 mmol/L 136-145 Potassium 3.7 mmol/L 3.5-5.1 Chloride 101 mmol/L 98-107 Carbon Dioxide 25 mEq/L 18-29 Anion Gap 14 mEq/L 8-16 Calcium 9.2 mg/dL 8.5-10.1 Total Protein 7.7 g/dL 6.3-8.0 Albumin 3.8 g/dL 3.5-5.0 Globulin 3.9 g/dL 1.9-4.3 Alb/Glob 1.0 ratio Bilirubin,Total 2.6 mg/dL High 0.2-1.2 Sgot/Ast 27 U/L 16-40 SGPT/Alt 57 U/L 30-65 Alkaline Phosphatase 92 U/L 50-136 Laboratory test finding 04/18/2013 Urine Screen See Note 64 Urinalysis With Microscopic 04/18/2013 Urine Color DK YELLOW Yellow Urine Clarity CLEAR Clear Urine Glucose - Dipstick NEGATIVE mg/dL Negative Urine Bilirubin - Dipstick SMALL High Negative Urine Ketone 15 mg/dL High Negative Urine Specific [place] 1.025 1.010-1.030 Urine Blood SMALL High Negative Urine PH 6.0 Low 6.5-7.5 Urine Protein - Dipstick NEGATIVE mg/dL Negative Urine Urobilinogen - Dipstick 1.0 E.U./dL 0.2-1.0 Urine Nitrite - Dipstick NEGATIVE Negative Urine Leuk Esterase NEGATIVE Negative Urine RBC 2-5 rbc/hpf 0-7 Urine WBC 0-2 wbc/hpf 0-7 Urine Epithelial Cells FEW NONESEEN/lpf Urine Bacteria FEW NONESEEN Urine Mucus MODERATE NONESEEN Inr/Protime 01/28/2013 Inr 1.79 High 0.87-0.97 Inr/Protime 01/05/2013 Inr 2.75 High 0.87-0.97 65 Inr/Protime 11/20/2012 Inr 2.22 High 0.82-1.17 66 Inr/Protime 11/03/2012 Inr 3.23 High 0.82-1.17 67 Inr/Protime 10/03/2012 Inr 2.56 High 0.82-1.17 68 Inr/Protime 09/29/2012 Inr 2.60 High 0.82-1.17 69 CBC Auto Diff 09/01/2012 White Blood Count 5.9 10^3/uL 4.8-10.8 Red Blood Count 4.35 10^6/uL 4.0-5.4 Hemoglobin 14.4 g/dL 14.0-18.0 Hematocrit 40 % Low 42-52 Mean Corpuscular Volume 92 fL 80-94 Mean Corpuscular Hemoglobin 33 pg High 27-31 Mean Corpuscular HGB Conc 36 g/dL 31-36 Red Cell Distribution Width 15 % 10.5-15 Platelet Count 186 10^3/uL 150-450 Mean Platelet Volume 8 um3 7.4-10.4 Abs Neutrophils 3.9 10^3/uL 1.5-7.7 Abs Lymphocytes 1.6 10^3/uL 1.0-4.8 Abs Monocytes 0.4 10^3/uL 0-0.8 Abs Eosinophils 0 10^3/uL 0-0.6 Abs Basophils 0 10^3/uL 0-0.2 Abs Nucleated RBC 0.01 10^3/uL Granulocyte % 65.1 % 38-83 Lymphocyte % 26.5 % 25-47 Monocyte % 7.1 % 1-9 Eosinophil % 0.7 % 0-6 Basophil % 0.6 % 0-2 Nucleated Red Blood Cells % 0.1 Inr/Protime 08/28/2012 Inr 2.37 High 0.82-1.17 70 Lipid Profile (Trig/Chol/HDL) 08/28/2012 Triglycerides 673 mg/dL High 40- 200 Cholesterol 225 mg/dL High Less than 200 71 HDL Cholesterol 30 mg/dL Low 40-60 72 Cholesterol/HDL Ratio 7.5 AVERAGE High 1-4.44 Comp Metabolic Panel 08/28/2012 Sodium 137 mmol/L 133-145 Potassium 3.7 mmol/L 3.5-5.0 Chloride 104 mmol/L 101-111 Co2 Carbon Dioxide 26.0 mmol/L 22-32 Anion Gap 7.0 mmol/L 2-11 Glucose 113 mg/dL High 70-100 Blood Urea Nitrogen 15 mg/dL 6-24 Creatinine 0.90 mg/dL 0.50-1.40 BUN/Creatinine Ratio 16.7 8-20 Calcium 9.3 mg/dL 8.1-9.9 Total Protein 7.3 GM/DL 6.2-8.1 Albumin 4.2 GM/DL 3.6-5.4 Globulin 3.1 GM/DL 2-4 Albumin/Globulin Ratio 1.4 1-3 Total Bilirubin 2.1 mg/dL High 0.1-1.0 73 Alkaline Phosphatase 49 U/L 30-110 Alt 35 U/L 14-54 Ast 26 U/L 12-42 Egfr Non- 86.4 >60 Egfr 111.1 >60 74 Ua Inhouse 08/22/2012 Ua Glucose - Ua Bilirubin - Ua Ketones - Ua Specific [place] 1.010 Ua Blood - Ua PH 5.0 Ua Protein - Ua Urobilinogen - Ua Nitrite - Ua Leukocytes - Inr/Protime 08/13/2012 Inr 2.62 High 0.82-1.17 75 Protime 08/06/2012 Inr 3.86 High 0.82-1.17 76 Protime 07/18/2012 Inr 2.34 High 0.88-1.13 77 Protime 28.9 SEC High 10.3-13.5 78 Protime 07/14/2012 Inr 1.06 0.88-1.13 79 Protime 12.6 SEC 10.3-13.5 80 Protime 07/11/2012 Inr 1.09 0.88-1.13 81 Protime 13.0 SEC 10.3-13.5 82 Protime 07/04/2012 Inr 2.01 High 0.88-1.13 83, 84 Protime 24.6 SEC High 10.3-13.5 83, 85 Basic Metabolic Panel 07/04/2012 Sodium 139 mmol/L 135-145 83 Potassium 4.2 mmol/L 3.5-5.0 83 Chloride 106 mmol/L 101-111 83 Co2 (Carbon Dioxide) 27.0 mmol/L 22-32 83 Anion Gap 6.0 mmol/L 2-11 83, 86 Glucose 150 mg/dL High 70-100 83 BUN 18 mg/dL 6-24 83 Creatinine 1.0 mg/dL 0.50-1.40 83 One Over Creatinine 1.00 83 BUN/Creatinine Ratio 18.0 8-20 83 Calcium 9.7 mg/dL 8.1-9.9 83 eGFR Non- 76.5 > 60 83 eGFR 98.4 > 60 83, 87 Protime 06/27/2012 Inr 3.97 High 0.88-1.13 88 Protime 50.0 SEC High 10.3-13.5 89 Protime 06/20/2012 Inr 2.27 High 0.88-1.13 90 Protime 27.9 SEC High 10.3-13.5 91 Basic Metabolic Panel 06/20/2012 Sodium 138 mmol/L 135-145 Potassium 3.8 mmol/L 3.5-5.0 Chloride 109 mmol/L 101-111 Co2 (Carbon Dioxide) 24.0 mmol/L 22-32 Anion Gap 5.0 mmol/L 2-11 92 Glucose 115 mg/dL High 70-100 BUN 14 mg/dL 6-24 Creatinine 1.1 mg/dL 0.50-1.40 One Over Creatinine 0.90 BUN/Creatinine Ratio 12.7 8-20 Calcium 9.2 mg/dL 8.1-9.9 eGFR Non- 68.5 > 60 eGFR 88.1 > 60 93 Protime 06/18/2012 Inr 1.98 High 0.88-1.13 94 Protime 24.3 SEC High 10.3-13.5 95 Protime W/ Inr(Add V58.61) 06/16/2012 #Prothrombin Time 29.1 #International Normalized 2.36 Protime 06/13/2012 Inr 2.36 High 0.88-1.13 96 Protime 29.1 SEC High 10.3-13.5 97 Protime 06/09/2012 Inr 4.44 High 0.88-1.13 98, 99 Protime 56.2 SEC High 10.3-13.5 98, 100 Protime 06/04/2012 Inr 4.64 High 0.88-1.13 101 Protime 58.8 SEC High 10.3-13.5 102 Protime 05/30/2012 Inr 4.77 High 0.88-1.13 103 Protime 60.6 SEC High 10.3-13.5 104 Protime 05/28/2012 Inr 4.12 High 0.88-1.13 105 Protime 52.0 SEC High 10.3-13.5 106 Protime 05/23/2012 Inr 2.91 High 0.88-1.13 107 Protime 36.2 SEC High 10.3-13.5 108 Protime 05/21/2012 Inr 2.43 High 0.88-1.13 109 Protime 30.0 SEC High 10.3-13.5 110 Protime 05/17/2012 Inr 1.38 High 0.88-1.13 111 Protime 16.7 SEC High 10.3-13.5 112 Protime 05/15/2012 Inr 1.09 0.88-1.13 113 Protime 13.0 SEC 10.3-13.5 114 1 Desirable <150 Borderline high 150-199 High 200-499 Very High >500 2 Desirable <200 Borderline high 200-239 High >239 3 Low <40 Desirable: 40-60 High: >60 4 Desirable: <100 mg/dL Near Optimal: 100-129 mg/dL Borderline High: 130-159 mg/dL High: 160-189 mg/dL Very High: >189 mg/dL 5 Because ethnic data is not always readily available, this report includes an eGFR for both -Americans and non- Americans. The National Kidney Disease Education Program (NKDEP) does not endorse the use of the MDRD equation for patients that are not between the ages of 18 and 70, are , have extremes of body size, muscle mass, or nutritional status, or are non- or non-. According to the National Kidney Foundation, irrespective of diagnosis, the stage of the disease is based on the level of kidney function: Stage Description GFR(mL/min/1.73 m(2)) 1 Kidney damage with normal or decreased GFR 90 2 Kidney damage with mild decrease in GFR 60-89 3 Moderate decrease in GFR 30-59 4 Severe decrease in GFR 15-29 5 Kidney failure <15 (or dialysis) 6 Because ethnic data is not always readily available, this report includes an eGFR for both -Americans and non- Americans. The National Kidney Disease Education Program (NKDEP) does not endorse the use of the MDRD equation for patients that are not between the ages of 18 and 70, are , have extremes of body size, muscle mass, or nutritional status, or are non- or non-. According to the National Kidney Foundation, irrespective of diagnosis, the stage of the disease is based on the level of kidney function: Stage Description GFR(mL/min/1.73 m(2)) 1 Kidney damage with normal or decreased GFR 90 2 Kidney damage with mild decrease in GFR 60-89 3 Moderate decrease in GFR 30-59 4 Severe decrease in GFR 15-29 5 Kidney failure <15 (or dialysis) 7 It is recognized that currently available assays for the detection of antibodies to HIV-1 and/or HIV-2 may not detect all infected individuals. HIV antibodies may be undetectable in some stages of the infection and in some clinical conditions. The performance of this assay has not been established for populations of infants or children. Assayed by Chemiluminescence Microparticle Immunoassay on the Siemens Advia Centaur CP. Values obtained with different methods or kits cannot be used interchangeably.The diagnostic specificity of the ADVIA Centaur 1/O/2 Enhanced assay in the low risk population was 99.90% (6052/6058) with a 95% confidence interval of 99.78 to 99.96%. 8 Specimen Lipemic. Result may not be valid. 9 Because ethnic data is not always readily available, this report includes an eGFR for both -Americans and non- Americans. The National Kidney Disease Education Program (NKDEP) does not endorse the use of the MDRD equation for patients that are not between the ages of 18 and 70, are , have extremes of body size, muscle mass, or nutritional status, or are non- or non-. According to the National Kidney Foundation, irrespective of diagnosis, the stage of the disease is based on the level of kidney function: Stage Description GFR(mL/min/1.73 m(2)) 1 Kidney damage with normal or decreased GFR 90 2 Kidney damage with mild decrease in GFR 60-89 3 Moderate decrease in GFR 30-59 4 Severe decrease in GFR 15-29 5 Kidney failure <15 (or dialysis) 10 Please note: Effective November 24, 2014, the reference value for this test has changed due to the validation and activation of a new reagent lot number. 11 Test Performed by: [place] [address] Clinical Research Coordinator: Tacos Lombardi III, M.D. 12 HDL Interpretation: Undesirable: High Risk: Less than 40 mg/dL Desirable: Low Risk: Greater than 60 mg/dL 13 Unable to calculate LDL as triglyceride is > 400 14 Please note the change in the INR reference range effective 13. 15 Please note the change in the INR reference range effective 13. 16 Please note the change in the INR reference range effective 13. 17 Please note the change in the INR reference range effective 13. 18 Please note the change in the INR reference range effective 13. 19 THERAPEUTIC INR RANGE: 2.0 - 3.0 DVT, Pulmonary embolus, prophylaxis against venous thrombosis or systemic embolization in high risk patients. 2.5 - 3.5 Mechanical heart valves 20 INR/pt in hospital 21 Note: Persistent reduction for 3 months or more in an eGFR <60 mL/min/1.73 m2 defines CKD. Patients with eGFR values >/=60 mL/min/1.73 m2 may also have CKD if evidence of persistent proteinuria is present. The original MDRD equation for estimated GFR is not valid for patients less than 18 years of age. Additional information may be found at www.kdoqi.org. 22 THERAPEUTIC INR RANGE: 2.0 - 3.0 DVT, Pulmonary embolus, prophylaxis against venous thrombosis or systemic embolization in high risk patients. 2.5 - 3.5 Mechanical heart valves 23 Note: Persistent reduction for 3 months or more in an eGFR <60 mL/min/1.73 m2 defines CKD. Patients with eGFR values >/=60 mL/min/1.73 m2 may also have CKD if evidence of persistent proteinuria is present. The original MDRD equation for estimated GFR is not valid for patients less than 18 years of age. Additional information may be found at www.kdoqi.org. 24 THERAPEUTIC INR RANGE: 2.0 - 3.0 DVT, Pulmonary embolus, prophylaxis against venous thrombosis or systemic embolization in high risk patients. 2.5 - 3.5 Mechanical heart valves 25 THERAPEUTIC INR RANGE: 2.0 - 3.0 DVT, Pulmonary embolus, prophylaxis against venous thrombosis or systemic embolization in high risk patients. 2.5 - 3.5 Mechanical heart valves 26 OPERATION/PROCEDURE Exploratory lap., segmental small bowel resection with primary anastomosis. DIAGNOSIS: "OBSTRUCTED AND PERFORATED SMALL BOWEL, RESECTION": SEGMENT OF SMALL BOWEL WITH PERFORATION. NO EVIDENCE OF MALIGNANCY NOR DYSPLASIA. Sejal GROSS Received in formalin labeled, "OBSTRUCTED AND PERFORATED SMALL BOWEL" is a 4.5 cm. segment of bowel with a diameter of 1.9 cm. at one end and 2.8 cm. at the other end. A 2.5 x 1.9 x 0.7 cm. perforated area is seen 1.2 cm. from the end. The mesentery measures up to 2.5 cm. in width and 1.2 cm. in thickness and is attached to the entire length of the bowel. The mesentery has hemorrhagic and purulent changes and purulent exudate. The bowel is opened along the mesenteric edge. Upon opening the mucosal surface is mildly edematous with hemorrhagic changes surrounding the perforated area that is inked blue. Commodities Clerk sections are submitted as follows: A= wide end, B=narrow end, C=background small bowel, C+E=perforation site as well as assistance representative sections of the mesentery. Sejal MICROSCOPIC Sections from the perforated area show acute inflammation associated with perforation. The background small bowel and margins are unremarkable. There are acute and chronic inflammation and fat necrosis in mesentery. PRE OPERATIVE DIAGNOSIS Abdominal pain, possible bowel perforation REVIEW CODE CODE: I BENJI Salazar MD 09/22/13 1343 27 THERAPEUTIC INR RANGE: 2.0 - 3.0 DVT, Pulmonary embolus, prophylaxis against venous thrombosis or systemic embolization in high risk patients. 2.5 - 3.5 Mechanical heart valves 28 GRAM STAIN ! FEW WHITE BLOOD CELLS ! NO ORGANISMS SEEN 29 Organism 1 ! NO GROWTH 30 GRAM STAIN ! FEW WHITE BLOOD CELLS ! NO ORGANISMS SEEN 31 Organism 1 ! ENTEROBACTER AEROGENES QUANTITY ! FEW ENTEROBACTER AEROGENES Target Route Dose M.I.C. RX AB COST ------ ----- -------- ------ -- ------ TRIMETHOPRIM/SULFAMETHOXAZOLE <=20 S CEFAZOLIN >=64 R CIPROFLOXACIN <=0.25 S PIPERACILLIN/TAZOBACTAM 8 S CEFTAZIDIME <=1 S CEFTRIAXONE <=1 S CEFEPIME <=1 S LEVOFLOXACIN <=0.12 S IMIPENEM <=0.25 S GENTAMICIN <=1 S TOBRAMYCIN <=1 S 32 Note: Persistent reduction for 3 months or more in an eGFR <60 mL/min/1.73 m2 defines CKD. Patients with eGFR values >/=60 mL/min/1.73 m2 may also have CKD if evidence of persistent proteinuria is present. The original MDRD equation for estimated GFR is not valid for patients less than 18 years of age. Additional information may be found at [email or web address]. 33 -------- Issue -------- Unit # Bld Type Product Status Date Time User Rsrvd [id number] AB POS FFP PRSMD TRFSD 09/20/13 1600 LAB.MPK Unit Satisfactory? No Apparent Contamination Volume: 200 ML TX Begin: 09/20/13-1599 By [employer] [place] End: 09/20/13 By [employer] [id number] AB POS FFP PRSMD TRFSD 09/20/131754 LAB.MPK Unit Satisfactory? No Apparent Contamination Volume: 200 ML TX Begin: 09/20/13 By [employer] [place] End: 09/20/13 By [employer] 34 -------- Issue -------- Unit # Bld Type Product Status Date Time User Rsrvd [id number] B POS FFP1 PRSMD TRFSD 09/20/13 1600 LAB.MPK Unit Satisfactory? No Apparent Contamination Volume: 200 ML TX Begin: 09/20/13-1599 By [employer] [place] End: 09/20/13-1600 By [employer] 35 CALLED TYESHA AT 1700 THAT BLOOD IS READY ; ASKED HER TO ADVIS ROLY AT 1725 09/20/13 by LAB.MPK Blood Type B POS HCT: 45.7 09/20/13 1125 HGB: 16.4 09/20/13 1125 INR: 2.6 09/20/13 1125 Transfusion Consent obtained? Y 36 [id number] B POS Comp? Y <N/A> 37 100.0750 09/20/13 LAB.MPK ALL MANUAL TESTING NEEDED 38 Please note the change in the INR reference range effective 13. 39 Please note the change in the INR reference range effective 13. 40 HDL Interpretation: Undesirable: High Risk: Less than 40 mg/dL Desirable: Low Risk: Greater than 60 mg/dL 41 Unable to calculate LDL as triglyceride is > 400 42 FASTING 43 Because ethnic data is not always readily available, this report includes an eGFR for both -Americans and non- Americans. The National Kidney Disease Education Program (NKDEP) does not endorse the use of the MDRD equation for patients that are not between the ages of 18 and 70, are , have extremes of body size, muscle mass, or nutritional status, or are non- or non-. According to the National Kidney Foundation, irrespective of diagnosis, the stage of the disease is based on the level of kidney function: Stage Description GFR(mL/min/1.73 m(2)) 1 Kidney damage with normal or decreased GFR 90 2 Kidney damage with mild decrease in GFR 60-89 3 Moderate decrease in GFR 30-59 4 Severe decrease in GFR 15-29 5 Kidney failure <15 (or dialysis) 44 Note: Persistent reduction for 3 months or more in an eGFR <60 mL/min/1.73 m2 defines CKD. Patients with eGFR values >/=60 mL/min/1.73 m2 may also have CKD if evidence of persistent proteinuria is present. The original MDRD equation for estimated GFR is not valid for patients less than 18 years of age. Additional information may be found at [email or web address]. 45 OPERATION/PROCEDURE Colonoscopy DIAGNOSIS: "RANDOM COLON BIOPSIES": QUIESCENT COLITIS. ANN-MARIE/lolly GROSS "RANDOM COLON BIOPSIES". The specimen is received in an appropriately labeled container. This contains approximately one dozen rounded rodriguez-brown colored pieces of soft tissue measuring up to 0.4 cm.; filtered and submitted in toto within a single cassette. ROGERIO/lolly MICROSCOPIC Sections reveal colonic mucosa with well to slightly dyspolar colonic crypts , without increased crypt mitotic activity. The stroma contains mostly normal to a slightly increased degree of eosinophils, lymphoplasmacytic infiltration, and edema. PRE OPERATIVE DIAGNOSIS Melena REVIEW CODE CODE: I BRIANA Barajas MD 05/05/13 1223 46 Note: Persistent reduction for 3 months or more in an eGFR <60 mL/min/1.73 m2 defines CKD. Patients with eGFR values >/=60 mL/min/1.73 m2 may also have CKD if evidence of persistent proteinuria is present. The original MDRD equation for estimated GFR is not valid for patients less than 18 years of age. Additional information may be found at [email or web address]. 47 Note: Persistent reduction for 3 months or more in an eGFR <60 mL/min/1.73 m2 defines CKD. Patients with eGFR values >/=60 mL/min/1.73 m2 may also have CKD if evidence of persistent proteinuria is present. The original MDRD equation for estimated GFR is not valid for patients less than 18 years of age. Additional information may be found at [email or web address]. 48 Organism 1 ! NO ENTERIC PATHOGENS ISOLATED . ! ................................................... NOTE: ! INCLUDES TESTING FOR SALMONELLA, SHIGELLA, AEROMONAS, . ! PLESIOMONAS, CAMPYLOBACTER, AND E. COLI 0157:H7 . ! ................................................... . ! YERSINIA AND VIBRIO ARE NOT ROUTINELY SCREENED FOR AND . ! SHOULD BE REQUESTED SEPARATELY 49 SHIGA TOXIN 1 NOT DETECTED 50 SHIGA TOXIN 2 NOT DETECTED 51 NEGATIVE FOR C. DIFFICILE TOXIN A/B. CORRELATE RESULTS WITH CLINICAL CONDITION. 52 NEGATIVE FOR CRYPTOSPORIDIUM SPECIFIC ANTIGEN 53 NEGATIVE FOR GIARDIA SPECIFIC ANTIGEN. The specimen will be held for 5 days. Additional testing may be performed upon request if the antigen tests are negative, and the patient is still symptomatic or has traveled to an endemic region. 54 Note: Persistent reduction for 3 months or more in an eGFR <60 mL/min/1.73 m2 defines CKD. Patients with eGFR values >/=60 mL/min/1.73 m2 may also have CKD if evidence of persistent proteinuria is present. The original MDRD equation for estimated GFR is not valid for patients less than 18 years of age. Additional information may be found at [email or web address]. 55 DIFFERENTIAL CHECKED BY REPEAT COUNT 56 THERAPEUTIC INR RANGE: 2.0 - 3.0 DVT, Pulmonary embolus, prophylaxis against venous thrombosis or systemic embolization in high risk patients. 2.5 - 3.5 Mechanical heart valves 57 Note: Persistent reduction for 3 months or more in an eGFR <60 mL/min/1.73 m2 defines CKD. Patients with eGFR values >/=60 mL/min/1.73 m2 may also have CKD if evidence of persistent proteinuria is present. The original MDRD equation for estimated GFR is not valid for patients less than 18 years of age. Additional information may be found at [email or web address]. 58 Note: Persistent reduction for 3 months or more in an eGFR <60 mL/min/1.73 m2 defines CKD. Patients with eGFR values >/=60 mL/min/1.73 m2 may also have CKD if evidence of persistent proteinuria is present. The original MDRD equation for estimated GFR is not valid for patients less than 18 years of age. Additional information may be found at [email or web address]. 59 Result confirmed by repeat analysis. 60 FEW LARGE PLATELETS SEEN ON SMEAR Result confirmed by repeat analysis. 61 OPERATION/PROCEDURE Lap. cholecystectomy DIAGNOSIS: "GALLBLADDER, CHOLECYSTECTOMY": CHRONIC CHOLECYSTITIS, CHOLESTEROLOSIS AND CHOLELITHIASIS. NO EVIDENCE OF DYSPLASIA NOR NEOPLASIA APPRECIATED. ROGERIO/clf GROSS The specimen is received in a single container additionally labeled "GALLBLADDER". This contains a grossly recognizable opened gallbladder. This has a pink shiny smooth surface and overall measures 7.9 x 4.0 x 2.2 cm. in overall dimensions. There is no visible wall defect. The wall has a uniform thickness of 0.1 cm. The mucosal surface is pink, velvety smooth and unremarkable. Trabeculations noted. No velez reticular discoloration of cholesterolosis is noted. One stone is noted with a diameter up to 3.6 cm. it does not obstruct the neck. Commodities Clerk sections are submitted within a single cassette. WS/clf MICROSCOPIC Sections show gallbladder mucosa lined by columnar epithelium with focal synechia, and Rokitansky-Aschoff sinus formation. The submucosa has a mild infiltrate of lymphocytes and plasma cells. Foamy histiocytes are noted within the tips of papillae. The muscular wall is slightly fibrotic and hypertrophied. PRE OPERATIVE DIAGNOSIS Cholecystitis REVIEW CODE CODE: I BENJI Salazar MD 04/22/13 1330 62 SPECIMEN SLIGHTLY ICTERIC 63 Note: Persistent reduction for 3 months or more in an eGFR <60 mL/min/1.73 m2 defines CKD. Patients with eGFR values >/=60 mL/min/1.73 m2 may also have CKD if evidence of persistent proteinuria is present. The original MDRD equation for estimated GFR is not valid for patients less than 18 years of age. Additional information may be found at [email or web address]. 64 04/18/13 LAB.EMM1 Deleted by [employer] [facility] 65 Please note the change in INR reference range effective 12. The INR(International Normalized Ratio) was adopted by the World Health Organization (WHO) in 1982 as a standardized system of reporting PT (Prothrombin Time). The Centers for Disease Control (CDC) states that reporting of PT results in INR only is the preferred method. Recommended INR for Patients on Oral Anticoagulants Prophylaxis 2.0 - 3.0 Treatment of thrombosis 2.0 - 3.0 Prevention of embolism 2.0 - 3.0 Prevention of embolism from prosthetic heart valves 2.5 - 3.5 66 The INR(International Normalized Ratio) was adopted by the World Health Organization (WHO) in 1982 as a standardized system of reporting PT (Prothrombin Time). The Centers for Disease Control (CDC) states that reporting of PT results in INR only is the preferred method. Recommended INR for Patients on Oral Anticoagulants Prophylaxis 2.0 - 3.0 Treatment of thrombosis 2.0 - 3.0 Prevention of embolism 2.0 - 3.0 Prevention of embolism from prosthetic heart valves 2.5 - 3.5 67 The INR(International Normalized Ratio) was adopted by the World Health Organization (WHO) in 1983 as a standardized system of reporting PT (Prothrombin Time). The Centers for Disease Control (CDC) states that reporting of PT results in INR only is the preferred method. Recommended INR for Patients on Oral Anticoagulants Prophylaxis 2.0 - 3.0 Treatment of thrombosis 2.0 - 3.0 Prevention of embolism 2.0 - 3.0 Prevention of embolism from prosthetic heart valves 2.5 - 3.5 68 The INR(International Normalized Ratio) was adopted by the World Health Organization (WHO) in 1983 as a standardized system of reporting PT (Prothrombin Time). The Centers for Disease Control (CDC) states that reporting of PT results in INR only is the preferred method. Recommended INR for Patients on Oral Anticoagulants Prophylaxis 2.0 - 3.0 Treatment of thrombosis 2.0 - 3.0 Prevention of embolism 2.0 - 3.0 Prevention of embolism from prosthetic heart valves 2.5 - 3.5 69 The INR(International Normalized Ratio) was adopted by the World Health Organization (WHO) in 1983 as a standardized system of reporting PT (Prothrombin Time). The Centers for Disease Control (CDC) states that reporting of PT results in INR only is the preferred method. Recommended INR for Patients on Oral Anticoagulants Prophylaxis 2.0 - 3.0 Treatment of thrombosis 2.0 - 3.0 Prevention of embolism 2.0 - 3.0 Prevention of embolism from prosthetic heart valves 2.5 - 3.5 70 Effective July 28, 2012, in conjunction with the upgrade of the hospital information system, [facility] will release the International Normalized Ratio (INR) only. Patient reports will no longer contain prothrombin time (PT) results in seconds. This allows for consistency in patient evaluation and treatment. The INR was adopted by the World Health Organization (WHO) in 1983 as a standardized system of reporting PT. The Centers for Disease Control (CDC) states that reporting of PT results in INR only is the preferred method. Recommended INR for Patients on Oral Anticoagulants Prophylaxis 2.0 - 3.0 Treatment of thrombosis 2.0 - 3.0 Prevention of embolism 2.0 - 3.0 Prevention of embolism from prosthetic heart valves 2.5 - 3.5 71 Desirable: Less than 200 MG/DL Borderline-High Risk: 200-239 MG/DL High-Risk: 240 MG/DL and over 72 HDL Interpretation: Undesirable: High Risk: Less than 40 MG/DL Desirable: Low Risk: Greater than 60 MG/DL 73 A metabolite of Naproxen, O-desmethylnaproxen, has been shown to interfere with the Jendrassik-Wolford method for measuring total bilirubin. Samples from patients who have taken Naproxen have shown spurious elevation in total bilirubin levels. 74 Because ethnic data is not always readily available, this report includes an eGFR for both -Americans and non- Americans. The National Kidney Disease Education Program (NKDEP) does not endorse the use of the MDRD equation for patients that are not between the ages of 18 and 70, are , have extremes of body size, muscle mass, or nutritional status, or are non- or non-. According to the National Kidney Foundation, irrespective of diagnosis, the stage of the disease is based on the level of kidney function: Stage Description GFR(mL/min/1.73 m(2)) 1 Kidney damage with normal or decreased GFR 90 2 Kidney damage with mild decrease in GFR 60-89 3 Moderate decrease in GFR 30-59 4 Severe decrease in GFR 15-29 5 Kidney failure <15 (or dialysis) 75 Effective July 28, 2012, in conjunction with the upgrade of the hospital information system, [facility] will release the International Normalized Ratio (INR) only. Patient reports will no longer contain prothrombin time (PT) results in seconds. This allows for consistency in patient evaluation and treatment. The INR was adopted by the World Health Organization (WHO) in 1983 as a standardized system of reporting PT. The Centers for Disease Control (CDC) states that reporting of PT results in INR only is the preferred method. Recommended INR for Patients on Oral Anticoagulants Prophylaxis 2.0 - 3.0 Treatment of thrombosis 2.0 - 3.0 Prevention of embolism 2.0 - 3.0 Prevention of embolism from prosthetic heart valves 2.5 - 3.5 76 Recommended INR for Patients on Oral Anticoagulants Prophylaxis 2.0 - 3.0 Treatment of thrombosis 2.0 - 3.0 Prevention of embolism 2.0 - 3.0 Prevention of embolism from prosthetic heart valves 2.5 - 3.5 77 Recommended INR for Patients on Oral Anticoagulants Prophylaxis 2.0 - 3.0 Treatment of thrombosis 2.0 - 3.0 Prevention of embolism 2.0 - 3.0 Prevention of embolism from prosthetic heart valves 2.5 - 3.5 78 DIAGNOSIS,TREATMENT,AND THERAPY MUST BE BASED ON THE INR VALUE ALONE. 79 Recommended INR for Patients on Oral Anticoagulants Prophylaxis 2.0 - 3.0 Treatment of thrombosis 2.0 - 3.0 Prevention of embolism 2.0 - 3.0 Prevention of embolism from prosthetic heart valves 2.5 - 3.5 80 DIAGNOSIS,TREATMENT,AND THERAPY MUST BE BASED ON THE INR VALUE ALONE. 81 Recommended INR for Patients on Oral Anticoagulants Prophylaxis 2.0 - 3.0 Treatment of thrombosis 2.0 - 3.0 Prevention of embolism 2.0 - 3.0 Prevention of embolism from prosthetic heart valves 2.5 - 3.5 82 DIAGNOSIS,TREATMENT,AND THERAPY MUST BE BASED ON THE INR VALUE ALONE. 83 inr taken care of in separate triage. ka 84 Recommended INR for Patients on Oral Anticoagulants Prophylaxis 2.0 - 3.0 Treatment of thrombosis 2.0 - 3.0 Prevention of embolism 2.0 - 3.0 Prevention of embolism from prosthetic heart valves 2.5 - 3.5 85 DIAGNOSIS,TREATMENT,AND THERAPY MUST BE BASED ON THE INR VALUE ALONE. 86 Anion gap measurement may be of limited value in the presence of any alkalosis, especially in a combined acid base disorder. . 87 Because ethnic data is not always readily available, this report includes an eGFR for both -Americans and non- Americans. The National Kidney Disease Education Program (NKDEP) does not endorse the use of the MDRD equation for patients that are not between the ages of 18 and 70, are , have extremes of body size, muscle mass, or nutritional status, or are non- or non-. According to the National Kidney Foundation, irrespective of diagnosis, the stage of the disease is based on the level of kidney function: Stage Description GFR(mL/min/1.73 m(2)) 1 Kidney damage with normal or decreased GFR 90 2 Kidney damage with mild decrease in GFR 60-89 3 Moderate decrease in GFR 30-59 4 Severe decrease in GFR 15-29 5 Kidney failure <15 (or dialysis) 88 Recommended INR for Patients on Oral Anticoagulants Prophylaxis 2.0 - 3.0 Treatment of thrombosis 2.0 - 3.0 Prevention of embolism 2.0 - 3.0 Prevention of embolism from prosthetic heart valves 2.5 - 3.5 89 DIAGNOSIS,TREATMENT,AND THERAPY MUST BE BASED ON THE INR VALUE ALONE. 90 Recommended INR for Patients on Oral Anticoagulants Prophylaxis 2.0 - 3.0 Treatment of thrombosis 2.0 - 3.0 Prevention of embolism 2.0 - 3.0 Prevention of embolism from prosthetic heart valves 2.5 - 3.5 91 DIAGNOSIS,TREATMENT,AND THERAPY MUST BE BASED ON THE INR VALUE ALONE. 92 Anion gap measurement may be of limited value in the presence of any alkalosis, especially in a combined acid base disorder. . 93 Because ethnic data is not always readily available, this report includes an eGFR for both -Americans and non- Americans. The National Kidney Disease Education Program (NKDEP) does not endorse the use of the MDRD equation for patients that are not between the ages of 18 and 70, are , have extremes of body size, muscle mass, or nutritional status, or are non- or non-. According to the National Kidney Foundation, irrespective of diagnosis, the stage of the disease is based on the level of kidney function: Stage Description GFR(mL/min/1.73 m(2)) 1 Kidney damage with normal or decreased GFR 90 2 Kidney damage with mild decrease in GFR 60-89 3 Moderate decrease in GFR 30-59 4 Severe decrease in GFR 15-29 5 Kidney failure <15 (or dialysis) 94 Recommended INR for Patients on Oral Anticoagulants Prophylaxis 2.0 - 3.0 Treatment of thrombosis 2.0 - 3.0 Prevention of embolism 2.0 - 3.0 Prevention of embolism from prosthetic heart valves 2.5 - 3.5 95 DIAGNOSIS,TREATMENT,AND THERAPY MUST BE BASED ON THE INR VALUE ALONE. 96 Recommended INR for Patients on Oral Anticoagulants Prophylaxis 2.0 - 3.0 Treatment of thrombosis 2.0 - 3.0 Prevention of embolism 2.0 - 3.0 Prevention of embolism from prosthetic heart valves 2.5 - 3.5 97 DIAGNOSIS,TREATMENT,AND THERAPY MUST BE BASED ON THE INR VALUE ALONE. 98 PATIENT IS TAKING ANTIBIOTICS. 99 Recommended INR for Patients on Oral Anticoagulants Prophylaxis 2.0 - 3.0 Treatment of thrombosis 2.0 - 3.0 Prevention of embolism 2.0 - 3.0 Prevention of embolism from prosthetic heart valves 2.5 - 3.5 100 DIAGNOSIS,TREATMENT,AND THERAPY MUST BE BASED ON THE INR VALUE ALONE. 101 Recommended INR for Patients on Oral Anticoagulants Prophylaxis 2.0 - 3.0 Treatment of thrombosis 2.0 - 3.0 Prevention of embolism 2.0 - 3.0 Prevention of embolism from prosthetic heart valves 2.5 - 3.5 102 DIAGNOSIS,TREATMENT,AND THERAPY MUST BE BASED ON THE INR VALUE ALONE. 103 Recommended INR for Patients on Oral Anticoagulants Prophylaxis 2.0 - 3.0 Treatment of thrombosis 2.0 - 3.0 Prevention of embolism 2.0 - 3.0 Prevention of embolism from prosthetic heart valves 2.5 - 3.5 104 DIAGNOSIS,TREATMENT,AND THERAPY MUST BE BASED ON THE INR VALUE ALONE. 105 Recommended INR for Patients on Oral Anticoagulants Prophylaxis 2.0 - 3.0 Treatment of thrombosis 2.0 - 3.0 Prevention of embolism 2.0 - 3.0 Prevention of embolism from prosthetic heart valves 2.5 - 3.5 106 DIAGNOSIS,TREATMENT,AND THERAPY MUST BE BASED ON THE INR VALUE ALONE. 107 Recommended INR for Patients on Oral Anticoagulants Prophylaxis 2.0 - 3.0 Treatment of thrombosis 2.0 - 3.0 Prevention of embolism 2.0 - 3.0 Prevention of embolism from prosthetic heart valves 2.5 - 3.5 108 DIAGNOSIS,TREATMENT,AND THERAPY MUST BE BASED ON THE INR VALUE ALONE. 109 Recommended INR for Patients on Oral Anticoagulants Prophylaxis 2.0 - 3.0 Treatment of thrombosis 2.0 - 3.0 Prevention of embolism 2.0 - 3.0 Prevention of embolism from prosthetic heart valves 2.5 - 3.5 110 DIAGNOSIS,TREATMENT,AND THERAPY MUST BE BASED ON THE INR VALUE ALONE. 111 Recommended INR for Patients on Oral Anticoagulants Prophylaxis 2.0 - 3.0 Treatment of thrombosis 2.0 - 3.0 Prevention of embolism 2.0 - 3.0 Prevention of embolism from prosthetic heart valves 2.5 - 3.5 112 DIAGNOSIS,TREATMENT,AND THERAPY MUST BE BASED ON THE INR VALUE ALONE. 113 Recommended INR for Patients on Oral Anticoagulants Prophylaxis 2.0 - 3.0 Treatment of thrombosis 2.0 - 3.0 Prevention of embolism 2.0 - 3.0 Prevention of embolism from prosthetic heart valves 2.5 - 3.5 114 DIAGNOSIS,TREATMENT,AND THERAPY MUST BE BASED ON THE INR VALUE ALONE. Procedures Date CPT Code Description Status Comment 05/14/2013 42495 Oximetry, Single Completed 04/27/2013 Colonoscopy Completed Had small bowel resection shortly after. 08/28/2012 70709 Remove Impact Cerumen Requiring Completed Instrument, Unilateral 08/22/2012 49832 Electrocardiogram Complete Completed Encounters Type Date Location Provider CPT E/M Dx Office Visit 04/22/2018 10:00a Main Office David Albarado D.O. 06211 I10 E55.9 E75.5 Z79.01 N52.9 Z23 Office Visit 10/15/2017 3:00p Main Office David Albarado D.O. 12100 I10 E75.5 Z79.01 E55.9 N52.9 Z23 Z41.8 Office Visit 04/15/2017 3:30p Main Office David Albarado D.O. 13689 Z00.00 I10 E75.5 Z79.01 E55.9 N52.9 Z71.89 Office Visit 10/12/2016 4:00p Main Office David Albarado D.O. 49094 I10 Z79.01 Office Visit 10/12/2015 3:00p Main Office David Albarado D.O. 21532 Z86.718 Z79.01 I10 Office Visit 02/02/2015 3:00p Main Office David Albarado D.O. 24995 401.1 V58.61 V12.52 Office Visit 08/04/2014 4:00p Main Office David Albarado D.O. 24985 V58.61 401.1 453.9 Office Visit 05/11/2014 4:30p Main Office David Albarado D.O. 79767 995.27 782.1 960.8 E930.9 Office Visit 05/03/2014 3:00p Main Office Andrew Costello.AClaudia 32254 V58.61 453.9 522.4 401.1 Office Visit 02/01/2014 3:00p Main Office Andrew Costello.AClaudia 08593 401.1 272.1 V58.61 Office Visit 11/04/2013 11:00a Main Office Lori CostelloAClaudia 02812 V58.61 453.9 285.9 401.1 272.1 782.3 Office Visit 07/29/2013 8:40a Main Office Alee Moses, P.A. 98001 V58.61 285.9 401.1 V77.91 V04.81 V07.2 Office Visit 05/22/2013 8:40a Main Office Alee Moses, P.A. 61284 V58.61 453.9 719.46 285.9 Office Visit 05/18/2013 3:20p Main Office Alee Moses, P.A. 77560 V58.61 453.9 285.8 Office Visit 05/14/2013 11:20a Main Office Alee Moses, P.A. 15783 V58.61 453.9 Office Visit 05/11/2013 11:00a Main Office Alee Moses, P.A. 88969 285.8 719.46 V12.51 Office Visit 04/29/2013 8:40a Main Office Alee Moses, P.A. 33475 401.1 780.79 578.1 Office Visit 01/28/2013 8:40a Main Office Alee Moses, P.A. 37628 V58.61 401.1 278.00 V12.52 Office Visit 11/24/2012 10:20a Main Office Alee Moses, P.A. 93285 V58.61 401.1 782.3 278.00 Office Visit 08/22/2012 9:40a Main Office Alee Moses, P.A. 50534 V70.0 V77.91 V12.52 V76.51 401.1 V04.81 V07.2 V58.61 278.00 Office Visit 07/04/2012 11:00a Main Office Alee Moses, P.A. 76325 782.3 453.41 V58.61 401.9 Office Visit 06/18/2012 11:20a Main Office Alee Moses, P.A. 05404 453.41 401.9 V58.61 Office Visit 06/05/2012 10:20a Main Office Alee Moses, P.A. 70215 453.41 401.1 782.3 V58.61 682.6 Office Visit 05/23/2012 11:00a Main Office Hannah Costello 58225 453.41 401.1 278.00 782.3 V58.61 Plan of Care Future Appointment(s):12/10/2018 1:30 pm - David Albarado D.O. at Main [facility]0104/22/2018 - David Albarado D.O.I10 Essential (primary) hypertensionFollow up:6 months DMHME55.9 Vitamin D deficiency, ozgjmkkggyrM74.5 Other lipid storage dyvhdijleS75.01 skilled nursing (current) use of cuoceovekvrtlqN90.9 Male erectile dysfunction, bevuygagvjaM34 Encounter for immunization
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
[2018-05-10 13:39] LABS: Urine Appearance Clear; Urine Blood Negative (Negative); Urine Color Yellow; Urine Ketones 2+ (Negative); Urine Protein Negative (Negative); Urine Specific Gravity 1.047 (1.010-1.030); Urine Urobilinogen Negative (Negative)
[2018-05-10] MEDS ORDERED: Ondansetron INJ* 2 MG/ML VIAL IV ONE (16:42)
[2018-05-10] MEDS ORDERED: Morphine VIAL* 4 MG/ML VIAL (1 ml vial) IV ONE (16:42)
[2018-05-10 17:07] VITALS: BP 124/70
== END 2018-05-10 17:07 | disposition short-term general hospital (02) ==
LOC: ED 10:54
DX: S52.121A Displaced fracture of head of right radius, initial encounter for closed fracture (principal); S70.01XA Contusion of right hip, initial encounter; V22.4XXA Motorcycle driver injured in collision with two- or three-wheeled motor vehicle in traffic accident, initial encounter; Y92.410 Unspecified street and highway as the place of occurrence of the external cause; R93.2 Abnormal findings on diagnostic imaging of liver and biliary tract; R17 Unspecified jaundice; R16.1 Splenomegaly, not elsewhere classified; I87.8 Other specified disorders of veins; I82.502 Chronic embolism and thrombosis of unspecified deep veins of left lower extremity; Z79.01 Long term (current) use of anticoagulants
CPT/HCPCS: 36415; 71260; 74177; 80053; 81003; 82150; 82550; 83605; 83690; 84484; 85025; 85610; 86850; 86900; 86901; 93005; 96374; 96375; 99284; J2270; J2405; Q9967

== ENCOUNTER 2018-06-16 12:37 | Day surgery (SDC) | payer OTHER, MEDICARE ==
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
[~2018-06-16 12:37] MED LIST: Buffered Lidocaine 0.9% SYRIN* 5 ML/SYR SYRINGE INTRADERM ONE; Dexamethasone IV* 4 MG/ML 1 ML (4 MG) IV SLOW PU ONE; Dexamethasone IV* 4 MG/ML 1 ML (4 MG) ONE; Famotidine IV* 10 MG/ML 2 ML (20 mg) IV ONE; Famotidine IV* 10 MG/ML 2 ML (20 mg) ONE; ceFAZolin 2 GM PREMIX (*) 2 GM/50 ML BAG IVPB ONE
[2018-06-16] MEDS ORDERED: fentaNYL* 50 MCG/ML 2 ML VIAL (100 MCG VIAL) ONE ×2 (13:11→15:34)
[2018-06-16] MEDS ORDERED: Midazolam* 1 MG/ML 5 ML VIAL (5 MG) ONE (13:12)
[2018-06-16] MEDS ORDERED: Ondansetron INJ* 2 MG/ML VIAL ONE (13:12)
[2018-06-16] MEDS ORDERED: ROPIVACAINE 5 MG/ML 30 ML BTL (0.5%) ONE (13:35)
[2018-06-16] MEDS ORDERED: Propofol* 10 MG/ML 20 ML BTL IV PUSH ONE (13:53)
[2018-06-16] MEDS ORDERED: Naloxone* 0.4 MG/ML 1 ML VIAL IV PRN (14:57)
[2018-06-16] MEDS ORDERED: oxyCODONE/Acetamin 5/325 MG* TAB PO PRN (14:57)
[2018-06-16] MEDS ORDERED: DiMENhydriNATE IV* 50 MG/ML VIAL IV PUSH PRN (14:57)
[2018-06-16] MEDS ORDERED: Ondansetron INJ* 2 MG/ML VIAL IV PRN (14:57)
[2018-06-16] MEDS ORDERED: fentaNYL* 50 MCG/ML 2 ML VIAL (100 MCG VIAL) IV PRN (14:57)
[2018-06-16] MEDS ORDERED: HYDROmorphone INJ* 0.5 MG/0.5 ML SYRINGE IV PRN (14:57)
[2018-06-16] MEDS ORDERED: DiMENhydriNATE IV* 50 MG/ML VIAL ONE (16:51)
[2018-06-16 17:19] VITALS: BP 133/82
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
== END 2018-06-16 17:19 | disposition home or self-care (01) ==
LOC: OREAST 12:37
PROVIDERS: ATTEND Orthopaedic Surgery
DX: S46.011A Strain of muscle(s) and tendon(s) of the rotator cuff of right shoulder, initial encounter (principal); M75.21 Bicipital tendinitis, right shoulder; M93.811 Other specified osteochondropathies, right shoulder; V29.9XXA Motorcycle rider (driver) (passenger) injured in unspecified traffic accident, initial encounter; Y92.9 Unspecified place or not applicable; Z86.718 Personal history of other venous thrombosis and embolism; Z79.01 Long term (current) use of anticoagulants; I10 Essential (primary) hypertension; E11.8 Type 2 diabetes mellitus with unspecified complications; G89.18 Other acute postprocedural pain; E66.9 Obesity, unspecified; Z79.84 Long term (current) use of oral hypoglycemic drugs
CPT/HCPCS: 88304; C1713; C1776; J0690; J1100; J1240; J2250; J2405; J2704; J2795; J3010